=== PATIENT | female | born 1980 ===

== ENCOUNTER 2024-11-22 06:34 | Emergency (ER) | payer OTHER, SELFPAY ==
[2024-11-22 06:35] VITALS: BMI 32.3
[2024-11-22 06:46] VITALS: BP 119/72; PULSE 98; RESP 16; TEMP 36.8; O2SAT 98
--- NOTE | 2024-11-22 06:49 | EDNOTE_ITS ---
ED Back Injury Pain RME/HPI General Chief Complaint: Extremity Problem,Nontraumatic Stated Complaint: RIGHT LOWER LEG PAIN Time Seen by Provider: 11/22/24 06:43 Source: patient Arrival date/time: 11/22/24 06:34 44-year-old female with no known medical history presents to the emergency room with a chief complaint of pain in her lower back as well as pain to her right calf x 1 day Mode of arrival: ambulatory Limitations: no limitations Related Data Previous Rx's ?Medication ?Instructions ?Recorded hydrocodone 5 mg-acetaminophen 325 1 tab PO Q6H PRN pa in #25 tabs 08/05/20 mg tablet ([facility]) Allergies Allergy/AdvReac Type Severity Reaction Status Date / Time iron dextran complex Allergy Severe SOB,FLUSHING, Verified 11/22/24 06:35 ANXIETY Review of Systems Review of Systems Systems Reviewed: All systems reviewed, normal except as documented Constitutional Constitutional: Reports system reviewed and no additional complaints, except as documented, Denies fatigue, Denies fever(s), Denies headache(s) and Denies weakness Eyes Eyes: Reports system reviewed and no additional complaints, except as documented, Denies blurry vision and Denies change in vision ENT Ears, Nose, Mouth, and Throat: Reports system reviewed and no additional complaints, except as documented, Denies otalgia, Denies headache(s), Denies nasal congestion, Denies throat swelling and Denies vertigo Cardiovascular Cardiovascular: Reports system reviewed and no additional complaints, except as documented, Denies chest pain, Denies dyspnea and Denies dyspnea on exertion Respiratory Respiratory: Reports system reviewed and no additional complaints, except as documented, Denies chest congestion, Denies cough, Denies dyspnea, Denies dyspnea on exertion and Denies wheezing Gastrointestinal Gastrointestinal: Reports system reviewed and no additional complaints, except as documented, Denies abdominal pain, Denies cramping, Denies nausea and Denies vomiting Genitourinary Genitourinary: Reports system reviewed and no additional complaints, except as documented Musculoskeletal Musculoskeletal: Reports system reviewed and no additional complaints, except as documented and Reports back pain Integumentary/Breasts Skin/Breast: Reports system reviewed and no additional complaints, except as documented and Denies wounds Neurologic Neurologic: Reports system reviewed and no additional complaints, except as documented, Denies confusion, Denies headache(s), Denies lack of coordination, Denies vertigo and Denies weakness Psychiatric Psychiatric: Reports system reviewed and no additional complaints, except as documented, Denies anxiety, Denies confusion, Denies depression, Denies paranoia, Denies suicidal ideation and Denies tactile hallucinations Endocrine Endocrine: Reports system reviewed and no additional complaints, except as documented and Denies fatigue Hematologic/Lymphatic Hematologic/Lymphatic: Reports system reviewed and no additional complaints, except as documented and Denies lymphadenopathy Allergic/Immunologic Allergic/Immunologic: Reports system reviewed and no additional complaints, except as documented, Denies throat swelling, Denies urticaria and Denies wheezing Past Medical History Past Medical History NEUROLOGIC: Negative Seizures CARDIAC: Positive Cardiac Disorders; Negative Congestive Heart Failure RESPIRATORY: Positive Asthma; Negative Chronic Obstructive Pulmonary Disease (COPD) GENITOURINARY: Negative Renal Disease REPRODUCTIVE: Negative Pelvic Inflammatory Disease ENDOCRINE: Negative Diabetes Mellitus Type 1 or Diabetes Mellitus Type 2 PSYCHO/SOCIAL: Positive Anxiety OTHER HISTORY: Negative Blood Transfusions, Blood Transfusion Reaction or Anesthesia Reactions Surgical History SURGICAL: Positive Section Social History SMOKING STATUS: Never smoker ED Exam General Limitations: Present no limitations General appearance: Present alert and in no apparent distress Head Head exam: Present atraumatic Eye Eye exam: Present normal appearance, PERRL and EOMI ENT ENT exam: Present normal exam, normal oropharynx and mucous membranes moist Neck Neck exam: Present normal inspection, full ROM and trachea midline Chest Chest inspection: Present normal inspection and symmetric chest wall rise Respiratory Respiratory exam: Present normal lung sounds bilaterally Cardiovascular Cardiovascular exam: Present regular rate, normal rhythm and normal heart sounds Abdominal Exam Abdominal exam: Present soft and normal bowel sounds Extremities Exam Extremities exam: Present normal inspection and full ROM Expanded Lower Extremity Exam Hip/Pelvis exam: Present normal inspection Upper leg exam: Present normal inspection Knee exam: Present normal inspection Lower leg exam: Present full ROM and tenderness; Absent swelling, abrasion, laceration, ecchymosis, deformity, crepitus, dislocation, erythema, palpable cord, Homans' sign or Achilles tendon intact Ankle exam: Present normal inspection Foot/toe exam: Present normal inspection Gait: observed and normal Back Exam Back exam: Present normal inspection, full ROM and vertebral tenderness Back 1 view image: 2 1. Pain in her lumbar spine with palpation Neurological Exam Neurological exam: Present alert, oriented X3 and CN II-XII intact Psychiatric Psychiatric exam: Present normal affect and normal mood Skin Skin exam: Present warm, dry, intact and normal color Course Quality Measures none Orders Category Date Time Status XR lumbar spine 2-3V Stat Exams 11/22/24 06:48 Ordered Ketorolac Inj [Toradol Inj] Med 11/22/24 06:48 Discontinued 30 mg IM X1 ONE Vital Signs Vital signs: Vital Signs Temperature 98.2 F 11/22/24 06:46 Pulse Rate 98 11/22/24 06:46 Respiratory Rate 16 11/22/24 06:46 Blood Pressure 119/72 11/22/24 06:46 Pulse Oximetry (%) 98 11/22/24 06:46 Back Pain / Injury MDM Narrative MDM Narrative:: 44-year-old female with no known medical history presents to the emergency room with a chief complaint of pain in her lower back as well as pain to her right calf x 1 day Patient is hemodynamically stable and in no apparent distress. She is a febrile not tachycardic not tachypneic Physical examination shows lumbar back pain with palpation. There is also some right calf pain. There is no swelling no erythema no Homans' sign. There is no signs of any DVT in the right calf. Patient eloped prior to final disposition. Patient data External records reviewed:: [facility] previous records Clinical information provided by:: patient Social determinants that could affect healthcare access:: none Patient has the following chronic illnesses:: No chronic illness How is presenting disease/condition affected by chronic disease/condition?: no chronic disease Evaluation data The following diagnostics were reviewed and interpreted by me:: lab results and radiology exam(s) Lab and/or radiology exams considered but not ordered:: Labs and radiology exams considered and ordered Interpretation Summary: Lumbar spine x-ray- Medications / Prescriptions Medications or Prescriptions considered but not ordered:: Medication given Medication administrations:: Medication Administration History Discontinued Medications Ketorolac Tromethamine (Ketorolac Inj 60 Mg/2 Ml Vial) 30 mg IM X1 ONE Stop: 11/22/24 06:49 Medication given Consultations Consultation(s) initiated? (list below): No Diagnosis Differential diagnosis back pain/injury: lumbar radiculopathy, strain of lumbar region, thoracic back pain and discitis Most likely diagnosis given after review of the tests above:: Strain of lumbar region Admission Indicated Admission indicated?: not indicated Admission Request Was there a request for admission?: No Disposition Plan Disposition Plan: Discharge Discharge Attestation Discharge Attestation: The patient and all family members were given an opportunity to ask questions and understood the discharge instructions. Discharge instructions specifically effects, indications for sooner follow up or return to the emergency department, and the expected course of current diagnosis. Patient condition: Stable Discharge Plan Plan Patient Disposition: Elopement Discharge Disposition comment: Stable Prescriptions/Referrals Prescriptions/Med Rec: No Action hydrocodone-acetaminophen [[facility]] 5-325 mg tablet 1 tab PO Q6H MDD 4 PRN (Reason: pain) Qty: 25 0RF Problem List Clinical Impression: Lumbar back sprain Patient/Caregiver Discharge Instructions Print Language: Arabic
--- NOTE | 2024-11-22 07:05 | PC.NURSE ---
PT INFORMED ME THAT SHE WILL JUST GO HOME AND SEE HER PMD.
== END 2024-11-22 07:06 | disposition left against medical advice (07) ==
LOC: SERX 07:21
PROVIDERS: Emergency Provider Family Medicine
DX: S33.5XXA Sprain of ligaments of lumbar spine, initial encounter (principal); X58.XXXA Exposure to other specified factors, initial encounter; Z53.29 Procedure and treatment not carried out because of patient's decision for other reasons
CPT/HCPCS: 81025; 99281